=== PATIENT | female | born 1945 | race Caucasian/White ===

== ENCOUNTER 2019-06-26 13:55 | Emergency (ER) | payer MEDICARE ==
[~2019-06-26] VITALS: Ht 157.5 cm; Wt 83.1 kg
--- OUTSIDE RECORDS SUMMARY | ~2019-06-26 | XMS | Clinical Summary ---
Demographics + + + | Address | [address] [facility] [address] | | | [place] [address] | + + + | Home Phone | | + + + | Preferred Language | Unknown | + + + | Marital Status | | + + + | [employer] Affiliation | Unknown | + + + | Race | Unknown | + + + | Ethnic Group | Unknown | + + + Author + + + | Author | [facility] (Historical as of | | | 01-28-19) | + + + | Organization | [facility] (Historical as of | | | 01-28-19) | + + + | Address | Unknown | + + + | Phone | Unavailable | + + + Support + + +---------+ + | Name | Relationship | Address | Phone | + + +---------+ + | [place] | E[place] | Unknown | | + + +---------+ + Care Team Providers + +------+ + | 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 | Disp. | Refills | Star | End | Statu | | | | | | t | Date | s | | | | | | Date | | | + + +--------+---------+------+------+-------+ | alendronate | Take 70 mg by mouth | | 0 | 10/2 | | Activ | | (FOSAMAX) 70 MG | once a week. | | | /20 | | e | | tablet | | | | 18 | | | + + +--------+---------+------+------+-------+ | oxybutynin | Take 10 mg by mouth | | 3 | 12/3 | | Activ | | (DITROPAN-XL) 10 MG | daily. | | | 20 | | e | | 24 hr tablet | | | | 18 | | | + + +--------+---------+------+------+-------+ | aspirin 81 MG EC | Take 81 mg by mouth | | | | | Activ | | tablet | daily with | | | | | e | | | breakfast. | | | | | | + + +--------+---------+------+------+-------+ | cholecalciferol | Take 1,000 Units by | | | | | Activ | | (VITAMIN D-3) 1000 | mouth daily. | | | | | e | | units tablet | | | | | | | + + +--------+---------+------+------+-------+ | fish oil omega-3 | Take 1 g by mouth | | | | | Activ | | fatty acids 1000 MG | daily. | | | | | e | | capsule | | | | | | | + + +--------+---------+------+------+-------+ | Multiple | Take 1 each by mouth | | | | | Activ | | Vitamins-Minerals | daily. | | | | | e | | (MULTIVITAMIN ADULT | | | | | | | | EXTRA C) CHEW | | | | | | | + + +--------+---------+------+------+-------+ | | Take 1 tablet by | | | | | Activ | | multivitamin-mineral | mouth daily. | | | | | e | | s (OCUVITE-LUTEIN) | | | | | | | | tablet | | | | | | | + + +--------+---------+------+------+-------+ | Calcium Carbonate | Take 1 tablet by | | | | | Activ | | (CALCIUM-CARB 600 | mouth 2 (two) times | | | | | e | | PO) | daily. | | | | | | + + +--------+---------+------+------+-------+ | diphenhydrAMINE | Take 25 mg by mouth | | | | | Activ | | (BENADRYL) 25 mg | every 6 (six) hours | | | | | e | | capsule | as needed for | | | | | | | | Itching. | | | | | | + + +--------+---------+------+------+-------+ | atorvastatin | Take 2 tablets by | 180 | 3 | 04/0 | 04/0 | Activ | | (LIPITOR) 40 MG | mouth nightly. | tablet | | 2/20 | 1/20 | e | | tablet | | | | 19 | 20 | | + + +--------+---------+------+------+-------+ | lisinopril | Take 1 tablet by | 30 | 11 | 04/1 | | Activ | | (ZESTRIL) 40 MG | mouth daily. | tablet | | 1/20 | | e | | tabletIndications: | | | | 19 | | | | Essential | | | | | | | | hypertension, | | | | | | | | Ischemic | | | | | | | | cardiomyopathy | | | | | | | + + +--------+---------+------+------+-------+ | carvedilol (COREG) | Take 1 tablet by | 180 | 3 | 04/1 | 04/ | Activ | | 25 MG tablet | mouth 2 (two) times | tablet | | 1/20 | 0/20 | e | | | daily with meals. | | | 19 | 20 | | + + +--------+---------+------+------+-------+ | spironolactone | Take 1 tablet by | 30 | 11 | 04/1 | 04/1 | Activ | | (ALDACTONE) 25 MG | mouth daily. | tablet | | 1/20 | 0/20 | e | | tablet | | | | 19 | 20 | | + + +--------+---------+------+------+-------+ Active Problems + + + | Problem | Noted Date | + + + | Essential hypertension | 06/23/2018 | + + + | Chronic kidney disease | 06/23/2018 | + + + | Dyslipidemia | 06/23/2018 | + + + | Systolic heart failure (HCC) | 06/23/2018 | + + + | Obesity due to excess calories | 06/23/2018 | + + + | Vitamin D deficiency | 06/23/2018 | + + + | Anxiety | 06/23/2018 | + + + | Age-related osteoporosis without current pathological fracture | 06/23/2018 | + + + | Vascular dementia without behavioral disturbance | 06/23/2018 | + + + | [place] (myocardial infarction) | 06/23/2018 | + + + Family History + + +------+ + | Medical History | Relation | Name | Comments | + + +------+ + | Cancer | Father | | lung | + + +------+ + + +------+ + + | Relation | Name | Status | Comments | + +------+ + + | Father | | | | + +------+ + + | Mother | | | | + +------+ + + Social History + +-------+ +--------+ + | Tobacco Use | Types | Packs/Day | Years | Date | | | | | Used | | + +-------+ +--------+ + | Former Smoker | | 0.5 | 23 | Quit: 02/13/2016 | + +-------+ +--------+ + + +---+---+---+ | Smokeless Tobacco: | | | | | Never Used | | | | + +---+---+---+ + + +---------+ + | Alcohol Use | Drinks/We | oz/Week | Comments | | | ek | | | + + +---------+ + | No | | | | + + +---------+ + + + + | Sex Assigned at | Date Recorded | | | | + + + | Not on file | | + + + Last Filed Vital Signs + + + + | Vital Sign | Reading | Time Taken | + + + + | Blood Pressure | 130/68 | 09/22/2018 11:49 AM PDT | + + + + | Pulse | 78 | 09/22/2018 11:49 AM PDT | + + + + | Temperature | 36.7 C (98 F) | 09/13/2018 12:11 AM PDT | + + + + | Respiratory Rate | 18 | 09/13/2018 12:11 AM PDT | + + + + | Oxygen Saturation | 97% | 09/22/2018 11:49 AM PDT | + + + + | Inhaled Oxygen | - | - | | Concentration | | | + + + + | Weight | 86.6 kg (191 lb) | 09/22/2018 11:49 AM PDT | + + + + | Height | 157.5 cm (5' 2") | 09/22/2018 11:49 AM PDT | + + + + | Body Mass Index | 34.93 | 09/22/2018 11:49 AM PDT | + + + + Plan of Treatment + + + + + | Health Maintenance | Due Date | Last Done | Comments | + + + + + | Vaccine: | | | | | Dtap/Tdap/Td (1 - | 5 | | | | Tdap) | | | | + + + + + | Breast Cancer | | | | | Screening | 6 | | | | (Mammogram) | | | | + + + + + | Colon Cancer | | | | | Screening | 6 | | | | (Colonoscopy) | | | | + + + + + | Vaccine: Zoster (1 | | | | | of 2) | 6 | | | + + + + + | DEXA SCAN SCREENING | | | | | | 1 | | | + + + + + | Vaccine: | | | | | Pneumococcal 65+ | 1 | | | | Low/Medium Risk (1 | | | | | of 2 - PCV13) | | | | + + + + + | Vaccine: Influenza | | | | | (#1) | 9 | | | + + + + + Results Not on filefrom Last 3 Months Insurance + +--------+ +------+-------+ + | Payer | Benefi | Subscriber | Type | Phone | Address | | | t Plan | ID | | | | | | / | | | | | | | Group | | | | | + +--------+ +------+-------+ + | MEDICARE | MEDICA | [id number] | | | [address] | | | RE | | | | [place] [address] | | | IP-OP | | | | | + +--------+ +------+-------+ + | [employer] | [employer] | [id number] | | | | | | | | | | | | | HEALTH | | | | | | | CARE - | | | | | | | AARP | | | | | + +--------+ +------+-------+ + + +--------+ +--------+ + + | Guarantor Name | Accoun | Relation to | Date | Phone | Billing Address | | | t Type | Patient | of | | | | | | | | | | + +--------+ +--------+ + + | MARILYN ELLIOTT | Person [birth year] Self [birth year] Home: | [address] | | | al/Fam | | 1945 | [phone] [address] [place], | | | dipti | | | [phone] | [place] [address] | + +--------+ +--------+ + +
[2019-06-26] MEDS ORDERED: ALENDRONATE SOD70 MG PO (16:24)
[2019-06-26] MEDS ORDERED: CARVEDILOL25 MG PO (16:25)
[2019-06-26] MEDS ORDERED: METOPROLOL SUCC25 MG PO (16:25)
== END 2019-06-26 14:15 | disposition home or self-care (01) ==
LOC: ED 13:55
DX: S01.01XA Laceration without foreign body of scalp, initial encounter (principal); S50.311A Abrasion of right elbow, initial encounter; W17.89XA Other fall from one level to another, initial encounter